=== PATIENT | male | born 1930 | race Caucasian/White ===

== ENCOUNTER 2016-08-03 10:45 | Outpatient (RCR) | payer MEDICARE, BC ==
[~2016-08-03 10:45] MED LIST: AMITRIPTYLINE25 MG PO; CEPHALEXIN500 M1 PO; CORTEF 20MG TAB20 MG; EPA1000 MG PO; GLUCOSAMINE500 MG PO; GOOD NEIGHBOR325 MG PO; HYDROCORTISONE20 MG PO; LEVOTHYROXIN0.125 MG PO; LIPITOR 10MG10 MG; LIPITOR 10MG10 MG PO; METOPROLOL SUCC50 MG PO; MOTRIN 800800 MG/TAB PO; MVI; PRILOSEC 20MG20 MG PO; SYNTHROID0.125 MG PO; TEMAZEPAM15 MG PO; TENORMIN 2525 MG/TAB; TESTOSTERON IM; TYLENOL 325MG325 MG PO; VICODIN 5/5001 UDTAB PO
[2016-08-09] MEDS ORDERED: ULTRAM 50MG TAB50 MG PO (13:40)
[2016-08-09] MEDS ORDERED: NORCO 325 MG-51 TAB PO (13:40)
[2016-08-09] MEDS ORDERED: LIDODERM 5% PATC1 EA TP (13:43)
[2016-08-09] MEDS ORDERED: IPRATROPIUM BROM3 M1 IH (13:46)
[2016-08-09] MEDS ORDERED: COLACE 100100 MG/CAP PO (13:54)
[2016-08-22] MEDS ORDERED: TYLENOL 325MG325 MG PO (09:46)
[2016-08-22] MEDS ORDERED: SEROQUEL50 MG PO (09:46)
[2016-08-22] MEDS ORDERED: MIRALAX PA17 GM/Dose PO (09:47)
[2016-08-22] MEDS ORDERED: ULTRAM 50MG TAB50 MG PO (09:48)
== END 2016-08-29 07:09 | disposition still patient (30) ==
LOC: WSPT 10:45
DX: M25.811 Other specified joint disorders, right shoulder (principal); M62.81 Muscle weakness (generalized)

== ENCOUNTER 2016-08-07 16:45 | Inpatient (IN) | payer MEDICARE, BC ==
[~2016-08-07] VITALS: Ht 172.7 cm; Wt 77.3 kg
[2016-08-07 18:41] LABS: BASO # 0.1 (0.0-0.2); BASO % 0.5 % (0.0-2.0); EOS # 0.2 (0.0-0.7); EOS % 1.3 % (0-4.0); GRAN # 8.2 (1.4-6.5); HEMATOCRIT 39.2 % (42.0-52.0); HEMOGLOBIN 11.4 g/dl (13.5-18.0); LYMPH # 2.7 (1.2-3.4); LYMPH % 21.3 % (20.0-51.0); MEAN CELL VOLUME 73 fl (80.0-100.0); MEAN CORPUSCULAR HEMOGLOBIN 21 pg (27.0-31.0); MEAN CORPUSCULAR HGB CONC 29 g/dl (33.0-37.0); MEAN PLATELET VOLUME 10.5 fl (7.4-10.4); MONO # 1.4 (0.1-0.6); MONO % 11.3 % (1.7-9.3); PLATELET COUNT 334 K/mm3 (130-400); REDCELL DISTRIBUTION WIDTH-CV 20.9 % (11.5-14.5); WHITE BLOOD COUNT 12.6 K/mm3 (4.8-10.8)
[2016-08-07 18:51] LABS: ADJUSTED CALCIUM 10.1 mg/dL (8.4-10.2); ALBUMIN 3.5 gm/dL (3.5-5.0); BILIRUBIN,TOTAL 0.6 mg/dL (0.0-1.0); CALCIUM 9.7 mg/dL (8.4-10.2); CREATININE, serum 1.1 mg/dL (0.66-1.25); POTASSIUM 4.5 mmol/L (3.4-5.0); TOTAL PROTEIN 6.2 gm/dL (6.4-8.2)
[2016-08-08 00:08] VITALS: BP 140/61; PULSE 63; TEMP 98.2
[2016-08-08 05:35] VITALS: BP 151/65; PULSE 87; TEMP 98.2
[2016-08-08 09:51] VITALS: BP 106/47; PULSE 79; TEMP 98
[2016-08-08 14:19] VITALS: BP 124/54; PULSE 87; TEMP 97.6
[2016-08-08 18:04] VITALS: BP 153/84; PULSE 102; TEMP 98.6
[2016-08-09] VITALS (8 sets, daily range): BP systolic 115–185; BP diastolic 58–87; PULSE 78–113; TEMP 97.5–99
[2016-08-09] MEDS ORDERED: NORCO 325 MG-51 TAB PO (13:40)
[2016-08-09] MEDS ORDERED: ULTRAM 50MG TAB50 MG PO (13:40)
[2016-08-09] MEDS ORDERED: LIDODERM 5% PATC1 EA TP (13:43)
[2016-08-09] MEDS ORDERED: IPRATROPIUM BROM3 M1 IH (13:46)
[2016-08-09] MEDS ORDERED: COLACE 100100 MG/CAP PO (13:54)
== END 2016-08-09 18:51 | DRG 185 ==
LOC: COL.ER 16:45 → SURG 19:48
PROVIDERS: Emergency Medicine
DX: S22.41XA Multiple fractures of ribs, right side, initial encounter for closed fracture (principal); W18.30XA Fall on same level, unspecified, initial encounter; I10 Essential (primary) hypertension; I25.10 Atherosclerotic heart disease of native coronary artery without angina pectoris; Z95.1 Presence of aortocoronary bypass graft; G62.9 Polyneuropathy, unspecified; Z91.81 History of falling
CPT/HCPCS: A9284; J1170; J1885; J7040; J7120

== ENCOUNTER 2016-08-09 16:12 | Inpatient (IN) | payer MEDICARE, BC ==
[~2016-08-09] VITALS: Ht 172.7 cm; Wt 75.7 kg
[~2016-08-09 16:12] MED LIST changes: +COLACE 100100 MG/CAP PO; +IPRATROPIUM BROM3 M1 IH; +LIDODERM 5% PATC1 EA TP; +NORCO 325 MG-51 TAB PO; +ULTRAM 50MG TAB50 MG PO
[2016-08-09 19:51] VITALS: BP 127/71; PULSE 96; TEMP 98.7
[2016-08-10 06:31] VITALS: BP 171/75; PULSE 98; TEMP 98
[2016-08-10 17:25] LABS: PH 5 (5-8); SQUAMOUS EPITHELIAL None Seen /hpf; URINE APPEARANCE Clear; URINE BACTERIA None Seen /hpf; URINE BILIRUBIN Negative (NEGATIVE); URINE BLOOD Negative (NEGATIVE); URINE COLOR Yellow; URINE GLUCOSE 1+ (NEGATIVE); URINE KETONE Negative (NEGATIVE); URINE RBC 0-2 /hpf; URINE UROBILINOGEN Negative (NEGATIVE); URINE WBC 0-2 /hpf
[2016-08-10 18:00] VITALS: BP 150/58; PULSE 80; TEMP 98.6
[2016-08-11 06:48] VITALS: BP 154/85; PULSE 84
[2016-08-11 16:20] VITALS: BP 152/65; PULSE 107; TEMP 99.2
[2016-08-12 06:50] VITALS: BP 136/58; PULSE 67; TEMP 97.8
[2016-08-12 19:05] VITALS: BP 124/63; PULSE 99; TEMP 98.9
[2016-08-13 04:49] VITALS: BP 138/60; PULSE 101; TEMP 99
[2016-08-13 19:10] VITALS: BP 118/58; PULSE 85; TEMP 98.2
[2016-08-14 04:39] VITALS: BP 127/53; PULSE 72; TEMP 97.2
[2016-08-14 07:49] LABS: CALCIUM 9.3 mg/dL (8.4-10.2); CREATININE, serum 1.06 mg/dL (0.66-1.25); MAGNESIUM 2.1 mg/dL (1.6-2.3); POTASSIUM 3.7 mmol/L (3.4-5.0)
[2016-08-14 18:00] VITALS: BP 144/59; PULSE 83; TEMP 98.2
[2016-08-15 04:36] VITALS: BP 131/78; PULSE 89; TEMP 98.5
[2016-08-15 17:02] VITALS: BP 131/66; PULSE 95; TEMP 98.4
[2016-08-16 03:10] VITALS: BP 150/55; PULSE 92; TEMP 98.2
[2016-08-16 18:15] VITALS: BP 124/66; PULSE 85; TEMP 97.6
[2016-08-17 06:52] VITALS: BP 152/71; PULSE 81; TEMP 98.6
[2016-08-17 17:49] VITALS: BP 122/58; PULSE 71; TEMP 98.2
[2016-08-18 03:23] VITALS: BP 153/69; PULSE 92; TEMP 98.5
[2016-08-18 16:16] VITALS: BP 117/50; PULSE 81; TEMP 98.3
[2016-08-19 07:11] VITALS: BP 138/67; PULSE 74; TEMP 98.5
[2016-08-19 17:43] VITALS: BP 112/73; PULSE 94; TEMP 98.1
[2016-08-20 05:05] VITALS: BP 139/72; PULSE 88; TEMP 98.3
[2016-08-20 17:11] VITALS: BP 114/55; PULSE 79; TEMP 98.7
[2016-08-21 06:10] VITALS: BP 141/64; PULSE 88; TEMP 97.5
[2016-08-21 16:48] VITALS: BP 125/65; PULSE 72; TEMP 97.7
[2016-08-22 06:15] VITALS: BP 142/70; PULSE 93; TEMP 98
[2016-08-22] MEDS ORDERED: SEROQUEL50 MG PO (09:46)
[2016-08-22] MEDS ORDERED: TYLENOL 325MG325 MG PO (09:46)
[2016-08-22] MEDS ORDERED: MIRALAX PA17 GM/Dose PO (09:47)
[2016-08-22] MEDS ORDERED: ULTRAM 50MG TAB50 MG PO (09:48)
== END 2016-08-22 11:50 | disposition home health service (06) | DRG 948 ==
PROVIDERS: Internal Medicine
DX: R53.81 Other malaise (principal); S22.41XD Multiple fractures of ribs, right side, subsequent encounter for fracture with routine healing; I10 Essential (primary) hypertension; G62.9 Polyneuropathy, unspecified; I25.10 Atherosclerotic heart disease of native coronary artery without angina pectoris; Z95.5 Presence of coronary angioplasty implant and graft; R41.0 Disorientation, unspecified; W18.30XA Fall on same level, unspecified, initial encounter
CPT/HCPCS: 99222-AI; 99232-AI; 99233-AI; 99239; J1650

== ENCOUNTER 2017-01-10 10:15 | Outpatient (RCR) | payer MEDICARE, BC ==
[~2017-01-10 10:15] MED LIST changes: +MIRALAX PA17 GM/Dose PO; +SEROQUEL50 MG PO
== END 2017-01-14 | disposition still patient (30) ==
LOC: WSPT
DX: R26.89 Other abnormalities of gait and mobility (principal); R53.1 Weakness
CPT/HCPCS: G0283-GP; G8978-GP; G8979-GP

== ENCOUNTER 2017-03-18 10:45 | Outpatient (RCR) | payer MEDICARE, BC | END 2017-03-22 07:22 | disposition still patient (30) | LOC: WSPT 10:45 | DX: R26.89 Other abnormalities of gait and mobility (principal); R53.1 Weakness; Z95.1 Presence of aortocoronary bypass graft; Z90.49 Acquired absence of other specified parts of digestive tract | CPT/HCPCS: G8978-GP; G8979-GP; G8980-GP ==

== ENCOUNTER 2017-05-23 09:57 | Emergency (ER) | payer MEDICARE, BC ==
[2005-06-11 06:10] VITALS: BP 126/68
[~2017-05-23] VITALS: Ht 172.7 cm; Wt 65.9 kg
[2017-05-23 10:00] VITALS: BP 142/76; TEMP 98
[2017-05-23] MEDS ORDERED: LIPITOR 10MG10 MG PO (10:48)
[2017-05-23] MEDS ORDERED: COLACE 100100 MG/CAP PO (10:49)
[2017-05-23] MEDS ORDERED: IRON TABLETS325 MG PO (10:49)
[2017-05-23] MEDS ORDERED: CORTEF 20MG TAB20 MG PO ×2 (10:51)
[2017-05-23] MEDS ORDERED: LEVOXYL0.075 MG PO (10:52)
[2017-05-23] MEDS ORDERED: PRILOSEC 20MG20 MG PO (10:52)
[2017-05-23] MEDS ORDERED: SEROQUEL50 MG PO (10:53)
[2017-05-23] MEDS ORDERED: ULTRAM 50MG TAB50 MG PO (10:53)
[2017-05-23] MEDS ORDERED: VITAMIN C500 MG PO (10:54)
[2017-05-23] MEDS ORDERED: VITAMIN B650 MG PO (10:54)
[2017-05-23] MEDS ORDERED: VITAMIN B12 681 TAB PO (10:54)
[2017-05-23] MEDS ORDERED: VITAMIN D 400400 IU PO (10:55)
[2017-05-23 11:05] LABS: HEMATOCRIT 56.4 % (42.0-52.0); HEMOGLOBIN 18.7 g/dl (13.5-18.0); MEAN CELL VOLUME 92 fl (80.0-100.0); MEAN CORPUSCULAR HEMOGLOBIN 30 pg (27.0-31.0); MEAN CORPUSCULAR HGB CONC 33 g/dl (33.0-37.0); MEAN PLATELET VOLUME 11.2 fl (7.4-10.4); PLATELET COUNT 191 K/mm3 (130-400); RED BLOOD COUNT 6.14 M/mm3 (4.20-5.60)
[2017-05-23 11:06] LABS: ADD PATHOLOGY DIFF REVIEW NO
[2017-05-23 11:10] LABS: PROTHROMBIN TIME 11.3 SECONDS (9.7-12.8)
[2017-05-23 11:27] LABS: INFLUENZA A NEGATIVE; INFLUENZA B NEGATIVE
[2017-05-23 11:28] LABS: C-REACTIVE PROTEIN < 0.5 mg/dL (0.0-0.9)
[2017-05-23 11:30] LABS: ALANINE AMINOTRANSFERASE 53 U/L (21-72); ALBUMIN 3.6 gm/dL (3.5-5.0); ALKALINE PHOSPHATASE 66 U/L (50-136); ANION GAP 8 mmol/L (7-16); B-TYPE NATRIURETIC PEPTIDE 534 pg/mL (0-450); BLOOD UREA NITROGEN 14 mg/dL (9-20); CALCIUM 9.7 mg/dL (8.4-10.2); CARBON DIOXIDE 24 mmol/L (22-30); CHLORIDE 103 mmol/L (98-107); CREATINE KINASE 30 U/L (55-170); CREATININE, serum 0.87 mg/dL (0.66-1.25); GLUCOSE 91 mg/dL (74-106); LIPASE 134 U/L (23-300); POTASSIUM 3.9 mmol/L (3.4-5.0); SODIUM 135 mmol/L (137-145); TOTAL PROTEIN 6.5 gm/dL (6.4-8.2); TROPONIN-I < 0.012 ng/mL (0.000-0.034)
[2017-05-23 11:42] LABS: BAND 20 % (0-10); EOSINOPHIL 1 % (0-4); LYMPHOCYTE 13 % (20.0-51.0); NEUTROPHILS 66 % (42.0-75.2); TOTAL CELLS COUNTED 100
[2017-05-23 13:13] LABS: COLLECTION METHOD CLEAN CATCH
[2017-05-23 13:20] LABS: MUCOUS Present /lpf; PH 7 (5-8); SQUAMOUS EPITHELIAL None Seen /hpf; URINE APPEARANCE Clear; URINE BACTERIA None Seen /hpf; URINE BILIRUBIN Negative (NEGATIVE); URINE BLOOD Negative (NEGATIVE); URINE COLOR Straw; URINE GLUCOSE Negative (NEGATIVE); URINE KETONE Negative (NEGATIVE); URINE LEUKOCYTE ESTERASE Negative (NEGATIVE); URINE PROTEIN(semi-quant) Negative (NEGATIVE); URINE RBC None Seen /hpf; URINE UROBILINOGEN Negative (NEGATIVE); URINE WBC None Seen /hpf
[2017-05-23] MEDS ORDERED: ZOFRAN ODT4 MG PO (13:37)
[2017-05-23 13:57] VITALS: PULSE 70
== END 2017-05-23 13:58 | disposition home or self-care (01) ==
LOC: COL.ER 09:57
PROVIDERS: Emergency Medicine
DX: R11.2 Nausea with vomiting, unspecified (principal); I10 Essential (primary) hypertension; E03.9 Hypothyroidism, unspecified; I71.4 Abdominal aortic aneurysm, without rupture; G62.9 Polyneuropathy, unspecified; I25.10 Atherosclerotic heart disease of native coronary artery without angina pectoris; Z90.89 Acquired absence of other organs; Z95.1 Presence of aortocoronary bypass graft
CPT/HCPCS: J2405; J7040; Q9967

== ENCOUNTER 2017-07-24 16:09 | Outpatient (RCR) | payer MEDICARE, BC ==
[~2017-07-24 16:09] MED LIST changes: +CORTEF 20MG TAB20 MG PO; +IRON TABLETS325 MG PO; +LEVOXYL0.075 MG PO; +VITAMIN B12 681 TAB PO; +VITAMIN B650 MG PO; +VITAMIN C500 MG PO; +VITAMIN D 400400 IU PO; +ZOFRAN ODT4 MG PO
== END 2017-10-22 | disposition home or self-care (01) ==
LOC: WSST
DX: F03.90 Unspecified dementia, unspecified severity, without behavioral disturbance, psychotic disturbance, mood disturbance, and anxiety (principal); R25.9 Unspecified abnormal involuntary movements
CPT/HCPCS: G9162-GN; G9163-GN